=== PATIENT | female | born 1945 | race Caucasian/White ===

== ENCOUNTER 2020-04-02 01:49 | Outpatient (CLI) | payer MEDICARE, OTHER, SELFPAY ==
[2020-04-02 18:01] LABS: SARS-CoV-2 RNA PCR Negative
== END 2020-04-02 01:50 | disposition home or self-care (01) ==
LOC: ANHCOVIDDT 01:50
PROVIDERS: PCP Internal Medicine; Visit Provider Internal Medicine Gastroenterology
DX: Z01.812 Encounter for preprocedural laboratory examination (principal); Z20.828 Contact with and (suspected) exposure to other viral communicable diseases
CPT/HCPCS: 87635; C9803; U0003

== ENCOUNTER 2020-04-05 04:02 | Day surgery (SDC) | payer MEDICARE, OTHER, SELFPAY ==
[2020-03-29 11:42] VITALS: BMI 27.7
[2020-04-05 09:30] VITALS: BP 156/82; PULSE 97; RESP 20; TEMP 36.8; O2SAT 100
--- NOTE | 2020-04-05 09:38 | P.PNAN_ITS ---
Anes - Initial Pre Proc Eval Procedure: Operation Date: 04/05/20 10:45 Proposed Procedures p Screening Colonoscopy - Sea Suarez MD Date/Time: 04/05/20 09:38 Surgeon: Sea Suarez MD Pre Op Diagnosis: Neoplasm Screening Patient Data Age: 74 Gender: F Height: 5 ft 6 in Weight: 78.9 kg Last Vital Signs Temp 98.2 F 04/05/20 09:30 Pulse 97 04/05/20 09:30 Resp 20 04/05/20 09:30 BP 156/82 H 04/05/20 09:30 Pulse Ox 100 04/05/20 09:30 Allergies Allergy/AdvReac Type Severity Reaction Status Date / Time nitrofurantoin Allergy Severe Rash Verified 04/05/20 09:26 [From Macrobid] bacitracin Allergy Mild skin Verified 04/05/20 09:26 eruption clarithromycin Allergy Mild GI upset Verified 04/05/20 09:26 erythromycin base Allergy Mild GI upset Verified 04/05/20 09:26 gramicidin D Allergy Mild skin Verified 04/05/20 09:26 reaction neomycin Allergy Mild Rash Verified 04/05/20 09:26 polymyxin B Allergy Mild Rash Verified 04/05/20 09:26 Home Medications Medication Instructions Recorded Confirmed Type diltiazem HCl 180 mg 180 mg PO DAILY #90 cap 06/29/19 04/05/20 Rx capsule,extended release 24 hr aspirin [Aspir-81] 81 mg PO DAILY 07/29/19 04/05/20 History emollient combination no.40 1 each TOPICAL PRN PRN 08/24/19 04/05/20 History losartan 100 mg tablet 100 mg PO DAILY #90 tablet 12/07/19 04/05/20 Rx levothyroxine 88 mcg tablet 88 mcg PO DAILY #90 tablet 02/08/20 04/05/20 Rx pantoprazole 40 mg tablet,delayed 40 mg PO DAILY #90 tablet 02/08/20 04/05/20 Rx release simvastatin 10 mg tablet 10 mg PO DAILY #90 tablet 02/08/20 04/05/20 Rx folic acid 1 mg tablet 4 mg PO DAILY tablet 03/07/20 04/05/20 History methotrexate sodium 15 mg PO WEEKLY 03/29/20 04/05/20 History triamcinolone acetonide 1 applic TOPICAL BID PRN 03/29/20 04/05/20 History Patient hx anesthesia problems: none Family hx anesthesia problems: none [facility] Social History Social History Smoking status: Former smoker Second hand tobacco smoke exposure: No Smoking end date: 08/19/81 Alcohol intake: current Substance use: never Anes - Eval Final PreProcedure Day of Procedure 04/05/20 09:38 Patient weight: normal Heart: regular rate and rhythm Lungs: clear to auscultation Airway: Mallampati scale class II Neurological: alert and oriented Last oral intake: >/= 8 hours ASA classification: III Emergent: no Anesthetic plan: proceed Anesthesia type and monitoring: general GIVS and standard monitoring Informed Consent: The patient's anesthetic plan and its attendant risks and benefits were discussed with the patient/family/POA. Questions were solicited and answers provided to the satisfaction of the patient/family/POA.
[2020-04-05] MEDS: LACTATED RINGERS 1,000 ML 150 ML IV CONT (09:42)
--- NOTE | 2020-04-05 11:12 | PM.HPGS ---
History of Present Illness History of Present Illness Consent: Risks, benefits, and alternatives have been discussed and questions answered. Patient agrees to proceed with procedure. Chief complaint: Neoplasm Screening Narrative: Pennie Lozano is a 74 year old female here with positive cologuard, had colonoscopy about 10 years ago. Review of Systems Constitutional: Constitutional: Denies headache(s) and Denies weakness Eyes: Eyes: Denies blurry vision ENT: Reports Normal hearing present, Denies headache(s) and Denies neck pain Cardiovascular: Cardiovascular: Denies chest pain and Denies dyspnea Respiratory: Respiratory: Denies dyspnea Gastrointestinal: Gastrointestinal: Reports no additional gastrointestinal complaints Genitourinary: Genitourinary: Denies dysuria Musculoskeletal: Musculoskeletal: Denies neck pain Integumentary/Breasts: Skin/Breast: Denies dry skin Neurologic: Reports Normal hearing present, Denies headache(s) and Denies weakness Psychiatric: Psychiatric: Denies anxiety Endocrine: Endocrine: Denies change in body appearance Hematologic/Lymphatic: Hematologic/Lymphatic: Denies easy bleeding Allergic/Immunologic: Allergic/Immunologic: Denies urticaria PMFSH Past Medical History Medical History (Updated 04/05/20 @ 11:13 by Sea Suarez MD) Asthma Hyperlipidemia Positive colorectal cancer screening using Cologuard test Unspecified asthma, uncomplicated Social History Social History Smoking status: Former smoker Second hand tobacco smoke exposure: No Smoking end date: 08/19/81 Alcohol intake: current Substance use: never Meds Home Medications and Allergies Home Medications Medication Instructions Recorded Confirmed Type diltiazem HCl 180 mg 180 mg PO DAILY #90 cap 06/29/19 04/05/20 Rx capsule,extended release 24 hr aspirin [Aspir-81] 81 mg PO DAILY 07/29/19 04/05/20 History emollient combination no.40 1 each TOPICAL PRN PRN 08/24/19 04/05/20 History losartan 100 mg tablet 100 mg PO DAILY #90 tablet 12/07/19 04/05/20 Rx levothyroxine 88 mcg tablet 88 mcg PO DAILY #90 tablet 02/08/20 04/05/20 Rx pantoprazole 40 mg tablet,delayed 40 mg PO DAILY #90 tablet 02/08/20 04/05/20 Rx release simvastatin 10 mg tablet 10 mg PO DAILY #90 tablet 02/08/20 04/05/20 Rx folic acid 1 mg tablet 4 mg PO DAILY tablet 03/07/20 04/05/20 History methotrexate sodium 15 mg PO WEEKLY 03/29/20 04/05/20 History triamcinolone acetonide 1 applic TOPICAL BID PRN 03/29/20 04/05/20 History Allergies Allergy/AdvReac Type Severity Reaction Status Date / Time nitrofurantoin Allergy Severe Rash Verified 04/05/20 09:26 [From Macrobid] bacitracin Allergy Mild skin Verified 04/05/20 09:26 eruption clarithromycin Allergy Mild GI upset Verified 04/05/20 09:26 erythromycin base Allergy Mild GI upset Verified 04/05/20 09:26 gramicidin D Allergy Mild skin Verified 04/05/20 09:26 reaction neomycin Allergy Mild Rash Verified 04/05/20 09:26 polymyxin B Allergy Mild Rash Verified 04/05/20 09:26 Vital Signs Vital Signs - 24 hr 04/05/20 09:30 Temperature 98.2 F Pulse Rate 97 Respiratory Rate 20 Blood Pressure 156/82 H Pulse Oximetry 100 Exam Const: General: comfortable and no acute distress HENMT: General nose exam: Normal nares present Eyes: General: appearance normal, both eyes and all related structures Neck: Neck: no JVD Resp: Auscultation: clear to auscultation bilaterally Cardio: Rate: regular rate Rhythm: regular rhythm GI: Inspection: non-distended GI Palp: Yes Soft to palpation Skin: General skin exam: normal color Neuro: General: gait normal Speech: normal speech Extrem: General: normal to inspection Psych: Mental Status: mental status grossly normal Assessment and Plan Assessment and plan (1) Positive colorectal cancer screening using Cologuard test: Code(s):
[2020-04-05 11:40] VITALS: BP 144/76; PULSE 97; RESP 27; O2SAT 98
[2020-04-05 11:50] VITALS: BP 145/77; PULSE 85; RESP 25; O2SAT 100
[2020-04-05 12:00] VITALS: BP 148/76; PULSE 74; RESP 24; O2SAT 97
== END 2020-04-05 12:11 | disposition home or self-care (01) ==
PROVIDERS: PCP Internal Medicine; Visit Provider Internal Medicine Gastroenterology
PROC: 0DJD8ZZ Inspection of Lower Intestinal Tract, Via Natural or Artificial Opening Endoscopic (ICD-10-PCS; CPT 45378; principal; 2020-04-05 10:45)
DX: R19.5 Other fecal abnormalities (principal); D12.2 Benign neoplasm of ascending colon; D12.0 Benign neoplasm of cecum; E78.5 Hyperlipidemia, unspecified
CPT/HCPCS: 45385; 88305; J2704; J7120

== ENCOUNTER 2020-08-04 09:25 | Emergency (ER) | payer MEDICARE, OTHER, SELFPAY ==
--- NOTE | ~2020-08-04 | XR_ITS ---
EXAMINATION: XR wrist LT min 3V DATE: 08/04/2020 09:40 INDICATION: Left wrist pain. Fall. TECHNIQUE: 4 views of left wrist were obtained. COMPARISON: Left wrist radiographs 08/03/2015 FINDINGS: There is a comminuted fracture of distal radius with involvement of the distal articular ochoa rface and distal radioulnar joint. The main distal fracture fragment demonstrates impaction and dorsa l angulation. There is 27 degrees dorsal tilt of the distal articular surface. Ulnar styloid is intac t. There is mild osteoarthritis of first carpometacarpal joint. IMPRESSION: 1. Comminuted fracture of distal radius. Reviewed, dictated and finalized at location A. 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
[2020-08-04 09:28] VITALS: BP 176/82; PULSE 78; RESP 16; TEMP 36.6; O2SAT 98
--- NOTE | 2020-08-04 10:26 | ED.GENADULT ---
HPI - General Adult General Chief complaint: Extremity Injury, Upper Stated complaint: left wrist pain, fall Time Seen by Provider: 08/04/20 09:29 Source: patient Mode of arrival: ambulatory Limitations: no limitations History of Present Illness HPI narrative: Patient presents with chief complaint of left wrist pain that she sustained this morning after tripping on a frozen mouth falling with her left hand outstretched. Patient reports her pain worsens when she tries to flex or extend her wrist or move her fingers. Patient reports still having full sensation and range of motion to her fingers. Patient denies falling and hitting her head or having any consciousness or any other areas of pain or injury. Patient reports she has seen Dr. Harrison in the past for orthopedic issues with her knees and would like to see him again as needed. Related Data Home Medications Medication Instructions Recorded Confirmed aspirin [Aspir-81] 81 mg PO HS 07/29/19 08/04/20 emollient combination no.40 1 each TOPICAL PRN PRN 08/24/19 08/04/20 folic acid 1 mg tablet 5 mg PO DAILY tablet 03/07/20 08/04/20 methotrexate sodium 15 mg PO WEEKLY 03/29/20 08/04/20 triamcinolone acetonide 1 applic TOPICAL BID PRN 03/29/20 08/04/20 diltiazem HCl 240 mg PO HS 08/04/20 08/04/20 levothyroxine 88 mcg PO QAM 08/04/20 08/04/20 losartan 100 mg PO QAM 08/04/20 08/04/20 pantoprazole 40 mg PO QAM 08/04/20 08/04/20 simvastatin 10 mg PO HS 08/04/20 08/04/20 Allergies Allergy/AdvReac Type Severity Reaction Status Date / Time nitrofurantoin Allergy Severe Rash Verified 08/04/20 09:35 [From Macrobid] bacitracin Allergy Mild Blister Verified 08/04/20 14:33 gramicidin D Allergy Mild skin Verified 08/04/20 09:35 reaction neomycin Allergy Mild Blister Verified 08/04/20 14:33 polymyxin B Allergy Mild Blister Verified 08/04/20 14:33 erythromycin base AdvReac Mild GI upset Verified 08/04/20 14:33 Review of Systems Review of Systems: Narrative: CONSTITUTIONAL: Denies fever, chills, or sweats. EYES: Denies visual changes, redness, or discharge. ENT: Denies rhinorrhea, congestion, sore throat, or otalgia. CARDIOVASCULAR: Denies chest pain, palpitations, or edema. RESPIRATORY: Denies cough or dyspnea. GASTROINTESTINAL: Denies abdominal pain, nausea, vomiting, or diarrhea. GENITOURINARY: Denies dysuria or hematuria. SKIN: Denies rash or itching. MUSCULOSKELETAL: Reports left wrist pain denies back pain or myalgia. NEUROLOGIC: Denies headache, numbness, dizziness, or weakness. PSYCHIATRIC: Denies anxiety or depression. REPLACED BY [facility] Past Medical History Medical History (Updated 08/04/20 @ 10:34 by Omid Carvajal PA-C) Asthma Hyperlipidemia Positive colorectal cancer screening using Cologuard test Unspecified asthma, uncomplicated Family History Family History Sibling Family history of elevated blood lipids Mother Patient's mother is Father Patient's father is Social History Social History Smoking status: Former smoker Second hand tobacco smoke exposure: No Smoking end date: 08/19/81 Alcohol intake: current Substance use: never Exam Narrative: Exam Narrative: GENERAL: Well-appearing, well-nourished, and in no acute distress. HEAD: Normocephalic, atraumatic. No tenderness or hematomas or signs of injury noted. EYES: PERRLA and EOMI. NECK: Supple. No adenopathy or masses. No tenderness or lacerated motion. CHEST: Clear to auscultation. No respiratory distress. No wheezes rales or rhonchi EXTREMITIES: Swelling of the radial area. Minimal erythema or ecchymosis. Loss of flexion and extension of the left wrist due to pain. Sensation and range of motion intact to digits. Pulse intact. SKIN: Warm, dry, no rash. NEURO: No focal deficits. Alert and oriented x3. PSYCH: Normal mood and affect. Course
[2020-08-04] MEDS: IBUPROFEN 600 MG TABLET PO (10:28)
--- NOTE | 2020-08-04 10:38 | PC.NURSE ---
Wrist and sling applied to left upper extremity. Pt tolerated well. Awaiting disposition. Call light within reach.
[2020-08-04 12:07] VITALS: BP 178/89; PULSE 78; RESP 18; O2SAT 100
== END 2020-08-04 12:09 | disposition home or self-care (01) ==
PROVIDERS: Emergency Provider Emergency Medicine; PCP Internal Medicine
DX: S52.592A Other fractures of lower end of left radius, initial encounter for closed fracture (principal); Z79.82 Long term (current) use of aspirin; E78.5 Hyperlipidemia, unspecified; J45.909 Unspecified asthma, uncomplicated; Z87.891 Personal history of nicotine dependence; W00.0XXA Fall on same level due to ice and snow, initial encounter
CPT/HCPCS: 29125; 73110; 99284; A4565; A9270

== ENCOUNTER 2020-08-05 14:05 | Outpatient (CLI) | payer MEDICARE, OTHER, SELFPAY ==
--- NOTE | 2020-08-05 14:09 | ECG_ITS ---
Measurements Intervals [place] Rate: 69 P: 2 FL: 157 QRS: 11 QRSD: 132 T: -1 QT: 387 QTc: 416 Interpretive Statements SINUS RHYTHM RIGHT BUNDLE BRANCH BLOCK BASELINE ARTIFACT- II, III, AVR, AVF ABNORMAL ECG Electronically Signed On 08-05-2020 14:23:45 PARTNERSHIP MANAGER by Eros Acosta D.O.
== END 2020-08-05 14:06 | disposition home or self-care (01) ==
PROVIDERS: PCP Internal Medicine; Visit Provider Orthopaedic Surgery
DX: Z01.818 Encounter for other preprocedural examination (principal); I10 Essential (primary) hypertension; I45.10 Unspecified right bundle-branch block
CPT/HCPCS: 93005

== ENCOUNTER 2020-08-06 00:27 | Outpatient (CLI) | payer MEDICARE, OTHER, SELFPAY ==
[2020-08-06 18:59] LABS: SARS-CoV-2 RNA PCR Negative
== END 2020-08-06 00:28 | disposition home or self-care (01) ==
LOC: ANHCOVIDDT 00:28
PROVIDERS: PCP Internal Medicine; Visit Provider Orthopaedic Surgery
DX: Z01.812 Encounter for preprocedural laboratory examination (principal); Z20.828 Contact with and (suspected) exposure to other viral communicable diseases
CPT/HCPCS: 87635; C9803; U0003

== ENCOUNTER 2020-08-09 02:02 | Day surgery (SDC) | payer MEDICARE, OTHER, SELFPAY ==
[2020-08-04 14:42] VITALS: BMI 27.3
--- NOTE | 2020-08-08 12:28 | WPDANESEPPF ---
Anes - Initial Pre Proc Eval Procedure: Operation Date: 08/09/20 14:00 Proposed Procedures p Open Reduction Internal Fixation Left Wrist - Rolando Harrison MD Date/Time: 08/08/20 12:28 Surgeon: Rolando Harrison MD Pre Op Diagnosis: Left Distal Radius Fracture Patient Data Age: 74 Gender: F Height: 1.68 m Weight: 77 kg Allergies Allergy/AdvReac Type Severity Reaction Status Date / Time nitrofurantoin Allergy Severe Rash Verified 08/08/20 13:07 [From Macrobid] bacitracin Allergy Mild Blister Verified 08/08/20 13:07 gramicidin D Allergy Mild skin Verified 08/08/20 13:07 reaction neomycin Allergy Mild Blister Verified 08/08/20 13:07 polymyxin B Allergy Mild Blister Verified 08/08/20 13:07 erythromycin base AdvReac Mild GI upset Verified 08/08/20 13:07 Home Medications Medication Instructions Recorded Confirmed Type aspirin [Aspir-81] 81 mg PO HS 07/29/19 08/08/20 History emollient combination no.40 1 each TOPICAL PRN PRN 08/24/19 08/08/20 History folic acid 1 mg tablet 5 mg PO DAILY tablet 03/07/20 08/08/20 History methotrexate sodium 15 mg PO WEEKLY 03/29/20 08/08/20 History triamcinolone acetonide 1 applic TOPICAL BID PRN 03/29/20 08/08/20 History diltiazem HCl 240 mg PO HS 08/04/20 08/08/20 History hydrocodone-acetaminophen [[place]] 1 tablet PO Q8H PRN #10 tablet 08/04/20 08/08/20 Rx levothyroxine 88 mcg PO QAM 08/04/20 08/08/20 History losartan 100 mg PO QAM 08/04/20 08/08/20 History pantoprazole 40 mg PO QAM 08/04/20 08/08/20 History simvastatin 10 mg PO HS 08/04/20 08/08/20 History ECG: Date of Service: 08/05/20 Procedure(s): CA 12 lead EKG Accession Number(s): [id number] cc: ~ Measurements Intervals [place] Rate: 69 P: 2 CO: 157 QRS: 11 QRSD: 132 T: -1 QT: 387 QTc: 416 Interpretive Statements SINUS RHYTHM RIGHT BUNDLE BRANCH BLOCK BASELINE ARTIFACT- II, III, AVR, AVF ABNORMAL ECG Electronically Signed On 08-05-2020 14:23:45 [employer]STRUMENT MECH[employer]IC [employer] SYSTEM by Eros Acosta D.O. Dictated By: Eros Acosta DO 08/05/20 1444 Other Studies: echo 02/2020: lvsf ef 74%, no wall motion abnormalities. mild aortic stenosis valve area 1.7cm2 Patient hx anesthesia problems: none Family hx anesthesia problems: none PMFSH Past Medical History Medical History (Updated 08/08/20 @ 13:37 by Rolando Harrison MD) Asthma Chronic GERD Claustrophobia Coughing GERD (gastroesophageal reflux disease) Heart attack History of postoperative complication of surgical procedure HTN (hypertension) Hyperlipidemia Hypothyroidism Positive colorectal cancer screening using Cologuard test Unspecified asthma, uncomplicated Surgical History Surgical History (Updated 08/08/20 @ 13:32 by Rama Carpenter, RT(R)) History of meniscectomy of left knee History of tonsillectomy and adenoidectomy Family History Family History (Updated 08/08/20 @ 13:33 by Rama Carpenter RT(R)) Sibling Family history of elevated blood lipids Mother Patient's mother is Father Patient's father is Other Arthritis Carcinoma of colon Heart disease High cholesterol Social History Social History (Updated 08/08/20 @ 13:34 by Rama Carpenter RT(R)) Smoking packs per day: 1 Smoking cigarettes per day: 20.0 Years smoked: 4 Smoking pack-years: 4.00 Smoking status: Former smoker Second hand tobacco smoke exposure: No Smoking end date: 02/17/80 Alcohol intake: former Alcohol use details: SOCIAL DRINKER IN PAST Substance use: never Substance use type: does not use Living arrangements: with family Gender identity (if verbalized by the patient): Female Spiritual care concer
[2020-08-09] VITALS (14 sets, daily range): BP systolic 124–178; BP diastolic 52–78; PULSE 68–94; RESP 10–20; TEMP 36.1–36.4; O2SAT 93–100
--- NOTE | ~2020-08-09 | XR_ITS ---
XR surgery orthopedic 08/09/2020 15:51 Indication: Left wrist pain Procedure: 4 fluoroscopic images of the left wrist performed intraoperatively. 323 seconds of fluoros copy. Comparison: 08/08/2020 Findings: Comminuted fracture the distal radius transfixed by side plate and multiple screws. Fractur e fragments in anatomic alignment post reduction. No other gross fracture or malalignment. Impression: 1: Anatomic alignment of comminuted distal radial fracture post reduction with sideplate and screws. Reviewed, dictated and finalized at location A. STANT PROFESSOR OF LIFE SCIENCES Impression: 1: Anatomic alignment of comminuted distal radial fracture post reduction with sideplate and screws.
--- NOTE | 2020-08-09 12:54 | WPDANESPNB ---
Anes - Peripheral Nerve Block Date/Time: 08/09/20 12:54 I have discussed with the patient/family/POA the placement of a peripheral nerve block for post-operative pain management, including associated risks, benefits, complications, and side effects. Alternative methods of post-operative analgesia were detailed. Questions were solicited and answers provided to the satisfaction of the patient/family/POA. Time-Out: A pre-procedural Time-Out was completed immediately before starting the procedure and confirmed: Patient Identification, Site, Procedure, Patient Position and the Availability of Requisite Equipment. Clinical Indications: Acute post-operative pain management requested by the operative surgeon. Nerve Block Insertion Note Anes-nerve block: supraclavicular Patient position: supine Skin prep: chlorhexidine Needle: 22 gauge, stimulating, insulated echogenic needle. Needle length: 80 mm Technique: ultrasound (in plane) Injectate: bupivacaine 0.5% with epi 5 mcg/ml (20cc) Observations: tolerated well Complications: none Procedure start time:: 1350 Procedure end time:: 1355
[2020-08-09] MEDS: CELECOXIB 200 MG CAPSULE PO (13:11)
[2020-08-09] MEDS: ACETAMINOPHEN 500 MG TABLET 1000 MG PO (13:11)
[2020-08-09] MEDS: LACTATED RINGERS 1,000 ML 30 ML IV CONT ×3 (13:12→18:00)
--- NOTE | 2020-08-09 13:39 | WPDHPUPDATE1 ---
History and Physical Update Update Date/Time: 08/09/20 13:39 History and Physical has been reviewed, including an updated exam of the patient. There are NO changes in the patient's condition. Risks, benefits, and alternatives have been discussed and questions answered. Patient agrees to proceed with procedure.
[2020-08-09] MEDS: ceFAZolin 2 GM/D5W 50 ML 2 GM/50 ML BAG IVPB (14:02)
--- NOTE | 2020-08-09 16:19 | PM.PROC ---
Procedure Note - Detailed Date of procedure: 08/09/20 Pre-op diagnosis: Left Distal Radius Fracture Post-op diagnosis: same Procedure performed: ORIF LEFT DISTAL RADIUS FRACTURE Description of procedure: THE PATIENT WAS TAKEN TO THE OR AND PLACED UNDER GENERAL ANESTHESIA. THE LEFT UPPER EXTREMITY WAS PREPPED AND DRAPED FROM THE FINGERS TO THE ELBOW. AN INCISION WAS MADE OVER THE VOLAR WRIST IN A STANDARD HENRYS APPROACH OVER THE SKIN. DISSECTION CONTINUED UNTIL THE RADIAL ARTERY AND VEIN WERE IDENTIFIED AND RETRACTED. THE FCR TENDON WAS EXPOSED AND RETRACTED. THE FLEXOR POLLICIS TENDON WAS IDENTIFIED AND RETRACTED. THE PRONATOR QUADRATUS MUSCLE WAS IDENTIFIED AND WAS INCISED AT THE INSERTION SITE. THE FRACTURE WAS EXPOSED. A BIOMET DISTAL RADIUS PLATE WAS POSITIONED BRIDGING THE FRACTURE SITE. THE POSITION WAS CHECKED ON XRAY. DISTAL AND PROXIMAL SCREWS WERE PLACED WITH EXCELLENT FIXATION TO THE BONE. XRAYS WERE CHECKED AGAIN ASSURING EXCELLENT POSITION OF THE PLATE AND SCREWS AND A WELL REDUCED FRACTURE. THE TOURNEQUET WAS DEFLATED AND THE BLEEDERS WERE CAUTERIZED. THE RADIAL ARTERY WAS PULSATING WELL. THE WOUND WAS WASHED. THE DEEP LAYERS WERE REPAIRED WITH 3-0 VICRYL. THE SUBCUTANEOUS LAYER WAS APPROXIMATED WELL WITH 3-0 VICRYL AND THE SKIN WAS APPROXIMATED WITH 3-0 STRATAFIX AND DERMABOND AND STERI STRIPS. STERILE DRESSING WAS APPLIED AND A SUGAR TONG FOREARM SPLINT WAS APPLIED. THE PATIENT WAS EXTUBATED AND TRANSFERRED TO THE RECOVERY ROOM Anesthesia: GLMA Surgeon: Rolando Harrison MD Estimated blood loss (mL): 20 Complications: No immediate complications Condition: stable Disposition: PACU
[2020-08-09] MEDS: ONDANSETRON INJ 4 MG/2 ML VIAL IV PUSH (16:41)
[2020-08-09] MEDS: LABETALOL HCL INJ 100 MG/20 ML VIAL 10 MG IV PUSH (16:53)
--- NOTE | 2020-08-09 16:56 | SUR.PHASEI ---
PT C/O'D EPIGASTIC PAIN AND NAUSEA, SOB; MONITOR SHOWS BUNDLE BRANCH BLOCK; DR. GONZALEZ CALLED; ZOFRAN AND LABETOLOL GIVEN. TO GIVE FENTANYL NOW. HOB UP 40 DEGREES.
[2020-08-09] MEDS: fentaNYL CITRATE INJ (*CRX) 100 MCG/2 ML VIAL 25 MCG IV PUSH ×2 (17:01→17:22)
[2020-08-09] MEDS: diphenhydrAMINE HCl INJ 50 MG/ML VIAL 12.5 MG IV PUSH (17:04)
[2020-08-09] MEDS: hydrALAZINE HCL 20 MG/ML VIAL 10 MG IV PUSH (17:14)
--- NOTE | 2020-08-09 17:53 | SUR.PHASEI ---
DR. GONZALEZ CAME BY A SECOND TIME TO SEE PT. DR. JUSTIN CAME TO SEE PT. PT NOW DENIES SOB AND THAT EPIGASTRIC PAIN IS RESOLVING.
--- NOTE | 2020-08-09 18:08 | SUR.PHASEI ---
PT STATES THAT SHE FEELS SHE CAN'T MOVE, FEELS HEAVY . PT IS ABLE TO MOVE ALL EXTREMITIES; GOOD STRENGTH TO LEGS/FEET. STRONG RIGHT HAND TACKING STITCH REMOVER. TALKING TO ME OFTEN. BELCHING FREQUENTLY.
--- NOTE | 2020-08-09 19:38 | SUR.PHASEII ---
Addendum entered by Asha Witt RN 08/10/20 12:02: ON THE RECLINER Original Note: DR. JUSTIN CALLED PER HIS REQUEST TO TELL HIM THAT VLADIMIR IS MUCH BETTER AND MEETS ANESTHESIA CRITERIA FOR DISCHARGE. PT DENIES NAUSEA, CHEST PAIN, SOB, LEFT WRIST PAIN. ABLE TO TRANSFER FROM STRETCHER TO BATHROOM WITH SOME ASSISTANCE. RESTING NOW NO THE RECLINER.
== END 2020-08-09 19:45 | disposition home or self-care (01) ==
PROVIDERS: PCP Internal Medicine; Visit Provider Orthopaedic Surgery
PROC: (CPT 25575; principal; 2020-08-09 14:00)
DX: S52.502A Unspecified fracture of the lower end of left radius, initial encounter for closed fracture (principal); W19.XXXA Unspecified fall, initial encounter; G89.18 Other acute postprocedural pain; I10 Essential (primary) hypertension; K21.9 Gastro-esophageal reflux disease without esophagitis; E03.9 Hypothyroidism, unspecified; J45.909 Unspecified asthma, uncomplicated; I25.2 Old myocardial infarction; Z87.891 Personal history of nicotine dependence
CPT/HCPCS: 25608; 64415; A9270; C1713; J0360; J0690; J1100; J1200; J2250; J2405; J2704; J3010; J7120

== ENCOUNTER 2020-08-27 09:16 | Outpatient (CLI) | payer MEDICARE, OTHER, SELFPAY ==
--- NOTE | ~2020-08-27 | MM_ITS ---
EXAMINATION: MM screening [facility] BI w sharon HISTORY: Screening TECHNIQUE: Craniocaudal and mediolateral oblique 3-D tomosynthesis images were obtained and synthetic 2-D images were generated. CAD analysis was submitted and interpreted. COMPARISON: Comparison to multiple prior studies sequentially, with oldest reviewed study dated 05/19. BREAST PARENCHYMAL COMPOSITION: There are scattered areas of fibroglandular density. FINDINGS: There is no evidence of suspicious mass, calcification, or architectural distortion to sugg est malignancy in either breast. There has been no suspicious interval change. IMPRESSION: 1. No mammographic evidence of malignancy. 2. Recommend routine screening mammography in one year. BI-RADS Category 1: Negative Reviewed, dictated and finalized at location A. IFIED HEARING INSTRUMENT DISPENSER
== END 2020-08-27 09:17 | disposition home or self-care (01) ==
LOC: ANHIMG 09:21
PROVIDERS: PCP Internal Medicine; Visit Provider Internal Medicine
DX: Z12.31 Encounter for screening mammogram for malignant neoplasm of breast (principal)
CPT/HCPCS: 77063; 77067

== ENCOUNTER 2021-09-27 10:01 | Outpatient (CLI) | payer MEDICARE, OTHER, SELFPAY ==
--- NOTE | ~2021-09-27 | MM_ITS ---
EXAMINATION: MM screening [facility] BI w sharon HISTORY: Screening mammogram TECHNIQUE: Craniocaudal and mediolateral oblique 3-D tomosynthesis images were obtained and synthetic 2-D images were generated. CAD analysis was submitted and interpreted. COMPARISON: 08/27/2020, 08/25/2019, 07/18/2018 BREAST PARENCHYMAL COMPOSITION: There are scattered areas of fibroglandular density. FINDINGS: There is no evidence of suspicious mass, calcification, or architectural distortion to sugg est malignancy in either breast. There has been no suspicious interval change. IMPRESSION: 1. No mammographic evidence of malignancy. 2. Recommend routine screening mammography in one year. BI-RADS Category 1: Negative Reviewed, dictated and finalized at location A. ALARM OPERATOR
== END 2021-09-27 10:02 | disposition home or self-care (01) ==
LOC: ANHIMG 10:05
PROVIDERS: PCP Internal Medicine; Visit Provider Student in an Organized Health Care Education/Training Program
DX: Z12.31 Encounter for screening mammogram for malignant neoplasm of breast (principal)
CPT/HCPCS: 77063; 77067

== ENCOUNTER 2021-11-15 08:29 | Outpatient (CLI) | payer MEDICARE, OTHER, SELFPAY ==
--- NOTE | ~2021-11-15 | NM_ITS ---
EXAMINATION: NM eusebia stress w perfusion DATE: 11/15/2021 15:20 INDICATION: Other chest pain. TECHNIQUE: Rest images were obtained following intravenous administration of 10.7 mCi Tc99m tetrofosm in (Myoview). The patient was infused intravenously with Lexiscan (regadenoson). Then, 32.3 mCi Tc99m tetrofosmin (Myoview) was administered intravenously, and stress images were obtained. Data was lavern nstructed into short axis and horizontal and vertical long axis SPECT images. Gated SPECT images were also obtained. COMPARISON: None. FINDINGS: There is no definite reversible or fixed perfusion abnormality to suggest ischemia or infar ction. There is no segmental wall motion abnormality. Left ventricular ejection fraction measures > 70%. IMPRESSION: 1. No definite ischemia or infarct. 2. Normal left ventricular ejection fraction measuring >70%. Reviewed, dictated and finalized at location A.
--- NOTE | 2021-11-15 08:40 | ECHO_ITS ---
Patient Info Name: Pennie Lozano Age: 75 years : 1945 Gender: Female Ht: 67 in Wt: 168 lbs BSA: 1.91 m2 HR: 84 bpm BP: 166 / 86 mmHg Heart Rhythm: Sinus Rhythm Exam Date: 11/15/2021 9:11 AM Exam Location: [facility] Pulmonary Patient Status: Outpatient Admit Date: 11/15/2021 Staff Ordering Physician: De May DO Laminator Hand: Pablito Dumont RDCS, RT Attending Provider: De May DO Referring Physician: Lalo RUTH; Exam Type: CA echo doppler color flow Study Info Indications I10 - Essential (primary) hypertension Complete two-dimensional, color flow and Doppler transthoracic echocardiogram is performed. Strain analysis performed. Summary 1. Left ventricular chamber dimension is normal. 2. Left ventricular systolic function is normal, estimated at >70%. 3. There is moderately increased left ventricular wall thickness. 4. The left ventricular diastolic function is grade I diastolic dysfunction. 5. Global longitudinal strain is normal at -19 %. 6. There is trace mitral valve regurgitation. 7. There is moderate aortic valve stenosis with a peak velocity of 262 cm/s, mean gradient of 13 mmHg, and aortic valve area of 1.4 cm2. Left Ventricle Left ventricular chamber dimension is normal. Left ventricular systolic function is normal, estimated at >70%. There is moderately increased left ventricular wall thickness. The left ventricular diastolic function is grade I diastolic dysfunction. Global longitudinal strain is normal at -19 %. Right Ventricle Right ventricular chamber dimension is normal. Right ventricular systolic function is normal. Left Atria Left atrial chamber dimension is normal. Right Atria Right atrial chamber dimension is normal. Aortic Valve The aortic valve is probable trileaflet. There is moderate aortic valve stenosis with a peak velocity of 262 cm/s, mean gradient of 13 mmHg, and aortic valve area of 1.4 cm2. There is no aortic valve regurgitation. There is mild aortic valve calcification. Pulmonic Valve The pulmonic valve is not well visualized. There is trace pulmonic regurgitation. Mitral Valve The mitral valve has normal leaflets. There is trace mitral valve regurgitation. The mitral valve annulus is mildly calcified. Tricuspid Valve The tricuspid valve leaflets are normal. There is trace tricuspid valve regurgitation. Unable to estimate PA systolic pressure due to poor spectral resolution of tricuspid regurgitant jet velocity. Pericardium/Pleural The pericardium appears epicardial fat pad. There is trivial pericardial effusion. Inferior Vena Cava Normal inferior vena cava with >50% collapse upon inspiration consistent with normal right atrial pressure, 5 mmHg. Aorta The aortic root size at the sinus of Valsalva is normal. There is mild aortic atherosclerosis. Left Ventricular Outflow Tract Name Value Normal LVOT 2D LVOT Diameter 2.0 cm LVOT Doppler LVOT Peak Gradient 5 mmHg LVOT Mean Gradient 2 mmHg LVOT VTI 25 cm L
--- NOTE | 2021-11-15 08:48 | EST_ITS ---
Patient Info Name: Pennie Lozano Age: 75 years : 1945 Gender: Female Ht: 67 in Wt: 168 lbs BSA: 1.91 m2 HR: 85 bpm BP: 182 / 90 mmHg Heart Rhythm: Sinus Rhythm Exam Date: 11/15/2021 11:01 AM Exam Location: [facility] Stress Patient Status: Outpatient Admit Date: 11/15/2021 Staff Ordering Physician: De May DO Attending Provider: De May DO Exercise Technologist: Margi Trammell CT Exercise Physician: Eros Acosta DO Exam Type: CA stress eusebia w NM Study Info Indications R07.9 - Chest pain, unspecified A regadenoson stress test was performed. Summary 1. 1. Negative lexiscan stress test for ischemic ST changes by ECG criteria. 2. 2. Baseline hypertension. 3. 3. Nuclear scan to follow and will be reported separately. Please correlate with it. 4. 4. Patient informed of the above results. Protocol: Lexiscan Stress ECG Details Stage: REST Duration (min): 14 min : 59 sec HR (bpm): 83 SBP (mmHg): 182 DBP (mmHg): 90 Stage: STAGE 1 Duration (min): 1 min : 0 sec HR (bpm): 114 SBP (mmHg): 185 DBP (mmHg): 86 Stage: RECOVERY Duration (min): 1 min : 0 sec HR (bpm): 118 SBP (mmHg): 185 DBP (mmHg): 86 Stage: RECOVERY Duration (min): 2 min : 0 sec HR (bpm): 105 SBP (mmHg): 185 DBP (mmHg): 86 Stage: RECOVERY Duration (min): 3 min : 0 sec HR (bpm): 107 SBP (mmHg): 189 DBP (mmHg): 81 Stage: RECOVERY Duration (min): 3 min : 43 sec HR (bpm): 98 SBP (mmHg): 189 DBP (mmHg): 81 Rest HR: 83 bpm Peak HR: 121 bpm Rest Sys BP: 182 mmHg Peak Sys BP: 189 mmHg Max Pred HR: 144 bpm % Max Pred HR: 84 % Target HR: 122 bpm Max RPP: 22,869 bpm*mmHg Termination Reason: Completed protocol Cardiac Symptoms: Shortness of breath Total Time: 1 min : 0 sec Rest Claudio BP: 90 mmHg Peak Claudio BP: 81 mmHg Total Dose: 0.4 mg Resting ECG Sinus rhythm, RBBB. Stress ECG No ST changes. Arrhythmias None. Report Signatures
== END 2021-11-15 08:30 | disposition home or self-care (01) ==
LOC: ANHCARD 08:33
PROVIDERS: PCP Internal Medicine; Visit Provider Internal Medicine
DX: I10 Essential (primary) hypertension (principal); R07.89 Other chest pain
CPT/HCPCS: 78452; 93017; 93306; A9502; J2785

== ENCOUNTER 2022-03-15 09:21 | Emergency (ER) | payer MEDICARE, OTHER, SELFPAY ==
--- NOTE | ~2022-03-15 | XR_ITS ---
EXAMINATION: XR hand RT min 3V INDICATION: Right hand pain TECHNIQUE: Three views of the right hand are obtained. COMPARISON: 08/03/2015 FINDINGS: There is no fracture, dislocation, or subluxation. There is mild osteoarthritis of multiple interphalangeal joints as well as at the triscaphe joint. The soft tissues are unremarkable. IMPRESSION: 1. Polyarticular osteoarthritis without acute osseous abnormality. Reviewed, dictated and finalized at location B.
--- NOTE | 2022-03-15 09:33 | ED.UPPEXIN ---
HPI - Extremity Injury (Upper) General Chief Complaint: Extremity Injury, Upper Stated Complaint: right hand injury Time Seen by Provider: 03/15/22 09:33 Source: patient, RN notes reviewed and old records reviewed Mode of arrival: ambulatory Limitations: no limitations History of Present Illness HPI narrative: 76 year old female who presents to [facility] care with complaints of right hand injury which occurred when she first fell yesterday. She states that she fell onto her knees and must of hit her hand or applied some increased pressure to her right hand when she fell. Patient has pain along the dorsal right 5th metacarpal and with some bruising noted also some swelling to dorsal aspect of her right hand. Patient has full ROM of right hand and wrist with some discomfort, circulation and sensation are intact to right hand and fingers. MD complaint: injury to: right and hand Onset (ago): day(s) (1) Handedness: right Treatments prior to arrival: cold therapy and other (Tylenol and Aleve) Related Data Home Medications Medication Instructions Recorded Confirmed emollient combination no.40 1 each topical PRN PRN Dry Skin 08/24/19 03/15/22 (Cetaphil DailyAdvance lotion) triamcinolone acetonide 0.1 % 1 applic topical BID PRN Dry Skin 03/29/20 03/15/22 lotion aspirin 81 mg chewable tablet 81 mg PO DAILY 03/15/22 03/15/22 leflunomide 20 mg tablet 20 mg PO DAILY 03/15/22 03/15/22 Allergies Allergy/AdvReac Type Severity Reaction Status Date / Time nitrofurantoin Allergy Severe Rash Verified 03/15/22 09:25 [From Macrobid] bacitracin Allergy Mild Blister Verified 03/15/22 09:25 gramicidin D Allergy Mild skin Verified 03/15/22 09:25 reaction neomycin Allergy Mild Blister Verified 03/15/22 09:25 polymyxin B Allergy Mild Blister Verified 03/15/22 09:25 erythromycin base AdvReac Mild GI upset Verified 03/15/22 09:25 Review of Systems Review of Systems: CONSTITUTIONAL: Denies fever, chills, or sweats. EYES: Denies visual changes, redness, or discharge. ENT: Denies rhinorrhea, congestion, sore throat, or otalgia. CARDIOVASCULAR: Denies chest pain, palpitations, or edema. RESPIRATORY: Denies cough or dyspnea. GASTROINTESTINAL: Denies abdominal pain, nausea, vomiting, or diarrhea. GENITOURINARY: Denies dysuria or hematuria. SKIN: Denies rash or itching. MUSCULOSKELETAL: Denies back pain, positive for right hand pain, or myalgia. NEUROLOGIC: Denies headache, numbness, or weakness. PSYCHIATRIC: Denies anxiety or depression. All systems reviewed & are unremarkable except as noted in HPI and below PMFSH Past Medical History Medical History (Updated 03/15/22 @ 11:05 by Pennie Merino NP) Asthma Chronic GERD Claustrophobia Coughing GERD (gastroesophageal reflux disease) Heart attack History of postoperative complication of surgical procedure HTN (hypertension) Hyperlipidemia Hypothyroidism Left wrist fracture Positive colorectal cancer screening using Cologuard test Unspecified asthma, uncomplicated Surgical History Surgical History History of meniscectomy of left knee History of tonsillectomy and adenoidectomy Family History Family History Sibling Family history of elevated blood lipids Mother Patient's mother is Ovarian cancer Father Patient's father is Other Arthritis Carcinoma of colon Heart disease High cholesterol Social History Social History Smoking packs per day: 1 Smoking cigarettes per day: 20.0 Years smoked: 4 Smoking pack-years: 4.00 Smoking status: Former smoker Second hand tobacco smoke exposure: No Smoking end date: 02/17/80 Alcohol intake: current Alcohol use details: Rarely 1-2 times a year. Substance use: never Substance use type: does not use Gender
[2022-03-15 09:39] VITALS: BP 154/88; PULSE 82; RESP 14; TEMP 36.8; O2SAT 97
== END 2022-03-15 10:10 | disposition home or self-care (01) ==
PROVIDERS: Emergency Provider Registered Nurse; PCP Internal Medicine
DX: S60.221A Contusion of right hand, initial encounter (principal); W19.XXXA Unspecified fall, initial encounter; J45.909 Unspecified asthma, uncomplicated; K21.9 Gastro-esophageal reflux disease without esophagitis; I25.2 Old myocardial infarction; I10 Essential (primary) hypertension; E78.5 Hyperlipidemia, unspecified; E03.9 Hypothyroidism, unspecified; F40.240 Claustrophobia; Z87.891 Personal history of nicotine dependence
CPT/HCPCS: 73130; 99213; G0463

== ENCOUNTER 2022-06-12 09:45 | Outpatient (CLI) | payer MEDICARE, OTHER, SELFPAY ==
--- NOTE | 2022-06-12 09:51 | ECHO_ITS ---
Patient Info Name: Pennie Lozano Age: 76 years : 1945 Gender: Female Ht: 67 in Wt: 165 lbs BSA: 1.89 m2 HR: 74 bpm BP: 151 / 87 mmHg Technical Quality: Good Exam Date: 06/12/2022 11:21 AM Exam Location: [facility] Patient Status: Outpatient Admit Date: 06/12/2022 Staff Ordering Physician: De May DO Digital Librarian: Sunday Enrique RDCS Attending Provider: De May DO Referring Physician: Lalo RUTH; Exam Type: CA echo doppler color flow Study Info Indications I35.0 - Nonrheumatic aortic (valve) stenosis Complete two-dimensional, color flow and Doppler transthoracic echocardiogram is performed. Summary 1. Complete two-dimensional, color flow and Doppler transthoracic echocardiogram is performed. 2. Left ventricular chamber dimension is normal. 3. Left ventricular systolic function is normal, estimated at 65-70%. 4. There is moderate concentric increased left ventricular wall thickness. 5. The left ventricular diastolic function is grade I diastolic dysfunction. 6. There is moderate aortic valve sclerosis. 7. There is moderate aortic valve stenosis with a peak velocity of 264 cm/s, mean gradient of 17 mmHg, and aortic valve area of 1.2 cm2. Left Ventricle Tissue doppler E/e' is not calculated. Left ventricular chamber dimension is normal. Left ventricular systolic function is normal, estimated at 65-70%. There is moderate concentric increased left ventricular wall thickness. The left ventricular diastolic function is grade I diastolic dysfunction. Right Ventricle Right ventricular chamber dimension is normal. Right ventricular systolic function is normal. Left Atria Left atrial chamber dimension is normal. Right Atria Right atrial chamber dimension is normal. Aortic Valve The aortic valve is trileaflet. There is moderate aortic valve sclerosis. There is moderate aortic valve stenosis with a peak velocity of 264 cm/s, mean gradient of 17 mmHg, and aortic valve area of 1.2 cm2. There is no aortic valve regurgitation. Pulmonic Valve There is no pulmonic regurgitation. Mitral Valve There is no mitral valve stenosis. There is no mitral valve regurgitation. Tricuspid Valve There is no tricuspid valve regurgitation. Pericardium/Pleural There is no pericardial effusion. Inferior Vena Cava Normal inferior vena cava with >50% collapse upon inspiration consistent with normal right atrial pressure, 5 mmHg. Aorta The aortic root size at the sinus of Valsalva is normal. Left Ventricular Outflow Tract Name Value Normal LVOT 2D LVOT Diameter 1.9 cm LVOT Doppler LVOT Peak Gradient 6 mmHg LVOT Mean Gradient 4 mmHg LVOT VTI 29 cm LVOT VTI/AV VTI Ratio 0.4 LVOT Stroke Volume 82 ml Tricuspid Valve Name Value Normal Es
== END 2022-06-12 09:46 | disposition home or self-care (01) ==
LOC: ANHCARD 09:46
PROVIDERS: PCP Internal Medicine; Visit Provider Internal Medicine
DX: I35.0 Nonrheumatic aortic (valve) stenosis (principal); I10 Essential (primary) hypertension
CPT/HCPCS: 93306

== ENCOUNTER 2022-11-14 14:40 | Outpatient (CLI) | payer MEDICARE, SELFPAY ==
--- NOTE | ~2022-11-14 | MM_ITS ---
EXAMINATION: MM screening [facility] BI w sharon HISTORY: Screening TECHNIQUE: Craniocaudal and mediolateral oblique 3-D tomosynthesis images were obtained and synthetic 2-D images were generated. CAD analysis was submitted and interpreted. COMPARISON: Comparison to multiple prior studies sequentially, with oldest reviewed study dated 05/20. BREAST PARENCHYMAL COMPOSITION: There are scattered areas of fibroglandular density. FINDINGS: There is no evidence of suspicious mass, calcification, or architectural distortion to sugg est malignancy in either breast. There has been no suspicious interval change. IMPRESSION: 1. No mammographic evidence of malignancy. 2. Recommend routine screening mammography in one year. BI-RADS Category 1: Negative Reviewed, dictated and finalized at location A.
== END 2022-11-14 14:41 | disposition home or self-care (01) ==
LOC: ANHIMG 14:43
PROVIDERS: PCP Internal Medicine; Visit Provider Internal Medicine
DX: Z12.31 Encounter for screening mammogram for malignant neoplasm of breast (principal)
CPT/HCPCS: 77063; 77067

== ENCOUNTER 2022-11-29 08:02 | Outpatient (CLI) | payer MEDICARE, SELFPAY ==
--- NOTE | ~2022-11-29 | CT_ITS ---
Non-contrast CT scan of the Abdomen and Pelvis Clinical indication: Abdominal pain Technique: 2.5 mm axial scans were obtained through the abdomen and pelvis without intravenous or or al contrast. Dose reduction technique was used on this scan by utilizing automated exposure control a nd iterative reconstruction technique. The dose-length product (DLP) was 487.86 mGy-cm. COMPARISON: 10/26/2013 Findings: Images through the lung bases reveal no abnormalities. Small bilateral nonobstructing renal stones are present. No ureteral stone or hydronephrosis on eithe r side. The liver, spleen, pancreas, and right adrenal gland appear normal. Cholecystectomy clips are present . Stable low-density left adrenal nodule, consistent with adenoma. There are atherosclerotic calcific ations of the aorta. There is no evidence of bowel obstruction. Normal appendix. Images through the pelvis were performed. There is no evidence of ascites or lymphadenopathy. Urinary bladder unremarkable. Small fat-containing right inguinal hernia present. Impression: Small bilateral nonobstructing renal stones. Small fat-containing right inguinal hernia. Reviewed, dictated and finalized at location . Impression: Small bilateral nonobstructing renal stones. Small fat-containing right inguinal hernia.
== END 2022-11-29 08:03 | disposition home or self-care (01) ==
PROVIDERS: PCP Internal Medicine; Visit Provider Internal Medicine
DX: R10.9 Unspecified abdominal pain (principal); N20.0 Calculus of kidney; K40.90 Unilateral inguinal hernia, without obstruction or gangrene, not specified as recurrent
CPT/HCPCS: 74176

== ENCOUNTER 2023-03-18 07:00 | Day surgery (SDC) | payer MEDICARE, SELFPAY ==
[2023-02-27 10:40] VITALS: BMI 26.1
[2023-03-18 07:53] VITALS: BP 146/74; PULSE 74; RESP 20; TEMP 37.1; O2SAT 97
--- NOTE | 2023-03-18 07:58 | WPDANESEPPF ---
Anes - Initial Pre Proc Eval Procedure: Operation Date: 03/18/23 09:00 Proposed Procedures p Screening Colonoscopy - Sea Suarez MD Date/Time: 03/18/23 07:58 Surgeon: Sea Suarez MD Pre Op Diagnosis: Neoplasm Screening Patient Data Age: 77 Gender: F Height: 1.68 m Weight: 75.5 kg Last Vital Signs Temp 37.1 C 03/18/23 07:53 Pulse 74 03/18/23 07:53 Resp 20 03/18/23 07:53 BP 146/74 H 03/18/23 07:53 Pulse Ox 97 03/18/23 07:53 O2 Del Method Room Air 03/18/23 07:53 Allergies Allergy/AdvReac Type Severity Reaction Status Date / Time nitrofurantoin Allergy Severe Rash Verified 03/18/23 07:49 [From Macrobid] bacitracin Allergy Mild Blister Verified 03/18/23 07:49 gramicidin D Allergy Mild skin Verified 03/18/23 07:49 reaction neomycin Allergy Mild Blister Verified 03/18/23 07:49 polymyxin B Allergy Mild Blister Verified 03/18/23 07:49 erythromycin base AdvReac Mild GI upset Verified 03/18/23 07:49 Home Medications Medication Instructions Recorded Confirmed Type emollient combination no.40 1 each topical PRN PRN Dry Skin 08/24/19 03/18/23 History (Cetaphil DailyAdvance lotion) triamcinolone acetonide 0.1 % 1 applic topical BID PRN Dry Skin 03/29/20 03/18/23 History lotion aspirin 81 mg chewable tablet 81 mg PO DAILY 03/15/22 03/18/23 History leflunomide 20 mg tablet 20 mg PO DAILY 03/15/22 03/18/23 History amlodipine 5 mg tablet 10 mg PO DAILY #180 tabs 11/05/22 03/18/23 Rx levothyroxine 88 mcg tablet 88 mcg PO QAM #90 tabs 11/23/22 03/18/23 Rx losartan 100 mg tablet 100 mg PO QAM #90 tabs 11/23/22 03/18/23 Rx pantoprazole 40 mg tablet,delayed 40 mg PO QAM #90 tabs 11/23/22 03/18/23 Rx release simvastatin 10 mg tablet 10 mg PO HS #100 tabs 01/07/23 03/18/23 Rx carvedilol 6.25 mg tablet 6.25 mg PO Q12H #200 tabs 01/29/23 03/18/23 Rx cholecalciferol (vitamin D3) 50 50 mcg PO DAILY 02/27/23 03/18/23 History mcg (2,000 unit) tablet (Vitamin D3) Patient hx anesthesia problems: none Family hx anesthesia problems: none Results Review: All pre-operative results and documents have been reviewed as part of the pre-operative evaluation. [facility] Past Medical History Medical History Asthma Chronic GERD Claustrophobia Coughing GERD (gastroesophageal reflux disease) Heart attack History of postoperative complication of surgical procedure HTN (hypertension) Hyperlipidemia Hypothyroidism Left wrist fracture Positive colorectal cancer screening using Cologuard test Unspecified asthma, uncomplicated Surgical History Surgical History H/O left wrist surgery History of meniscectomy of left knee History of tonsillectomy and adenoidectomy Hx laparoscopic cholecystectomy [address] Brooks. Family History Family History Sibling Family history of elevated blood lipids Mother Patient's mother is Ovarian cancer Heart disease Father Patient's father is Other Arthritis Carcinoma of colon High cholesterol Social History Social History Smoking packs per day: 1 Smoking cigarettes per day: 20.0 Years smoked: 4 Smoking pack-years: 4.00 Smoking status: Former smoker Second hand tobacco smoke exposure: No Smoking end date: 02/17/80 Additional smoking assessment comments: quit 40 years ago Alcohol intake: current Alcohol use details: Rarely 1-2 times a year. Substance use: never Substance use type: does not use Lack of Transportation: No Lack of Food: Never True Current Housing: I Have Housing Concerned About Future Housing: No Difficulty Paying Gas/Electric Bills: No Difficulty Paying for Meds: No Education: Decline to Answer Difficulty w/
[2023-03-18] MEDS: LACTATED RINGERS 1,000 ML 150 ML IV CONT (08:04)
--- NOTE | 2023-03-18 08:47 | PM.HPGS ---
History of Present Illness History of Present Illness Consent: Risks, benefits, and alternatives have been discussed and questions answered. Patient agrees to proceed with procedure. Chief complaint: Neoplasm Screening Narrative: Pennie Lozano is a 77 year old female with colon polyps in 2020 Review of Systems Constitutional: Constitutional: Denies headache(s) and Denies weakness Eyes: Eyes: Denies blurry vision ENT: Reports Normal hearing present, Denies headache(s) and Denies neck pain Cardiovascular: Cardiovascular: Denies chest pain and Denies dyspnea Respiratory: Respiratory: Denies dyspnea Gastrointestinal: Gastrointestinal: Reports no additional gastrointestinal complaints Genitourinary: Genitourinary: Denies dysuria Musculoskeletal: Musculoskeletal: Denies neck pain Integumentary/Breasts: Skin/Breast: Denies dry skin Neurologic: Reports Normal hearing present, Denies headache(s) and Denies weakness Psychiatric: Psychiatric: Denies anxiety Endocrine: Endocrine: Denies change in body appearance Hematologic/Lymphatic: Hematologic/Lymphatic: Denies easy bleeding Allergic/Immunologic: Allergic/Immunologic: Denies urticaria PMFSH Past Medical History Medical History (Updated 03/18/23 @ 08:47 by Sea Suarez MD) Adenomatous colon polyp Asthma Chronic GERD Claustrophobia Coughing GERD (gastroesophageal reflux disease) Heart attack History of postoperative complication of surgical procedure HTN (hypertension) Hyperlipidemia Hypothyroidism Left wrist fracture Positive colorectal cancer screening using Cologuard test Unspecified asthma, uncomplicated Surgical History Surgical History H/O left wrist surgery History of meniscectomy of left knee History of tonsillectomy and adenoidectomy Hx laparoscopic cholecystectomy [address] Brooks. Family History Family History Sibling Family history of elevated blood lipids Mother Patient's mother is Ovarian cancer Heart disease Father Patient's father is Other Arthritis Carcinoma of colon High cholesterol Social History Social History Smoking packs per day: 1 Smoking cigarettes per day: 20.0 Years smoked: 4 Smoking pack-years: 4.00 Smoking status: Former smoker Second hand tobacco smoke exposure: No Smoking end date: 02/17/80 Additional smoking assessment comments: quit 40 years ago Alcohol intake: current Alcohol use details: Rarely 1-2 times a year. 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 Gender identity (if verbalized by the patient): Female Spiritual care concerns: No Meds Home Medications and Allergies Home Medications Medication Instructions Recorded Confirmed Type emollient combination no.40 1 each topical PRN PRN Dry Skin 08/24/19 03/18/23 History (Cetaphil DailyAdvance lotion) triamcinolone acetonide 0.1 % 1 applic topical BID PRN Dry Skin 03/29/20 03/18/23 History lotion aspirin 81 mg chewable tablet 81 mg PO DAILY 03/15/22 03/18/23 History leflunomide 20 mg tablet 20 mg PO DAILY 03/15/22 03/18/23 History amlodipine 5 mg tablet 10 mg PO DAILY #180 tabs 11/05/22 03/18/23 Rx levothyroxine 88 mcg tablet 88 mcg PO QAM #90 tabs 11/23/22 03/18/23 Rx losartan 100 mg tablet 100 mg PO QAM #90 tabs 11/23/22 03/18/23 Rx pantoprazole 40 mg tablet,delayed 40 mg
[2023-03-18 09:04] VITALS: BP 107/55; PULSE 62; RESP 16; O2SAT 96
[2023-03-18 09:14] VITALS: BP 115/66; PULSE 70; RESP 18; O2SAT 98
[2023-03-18 09:24] VITALS: BP 132/68; PULSE 66; RESP 18; O2SAT 98
--- NOTE | 2023-03-18 10:25 | WPDANESPN ---
Anes - Prog Note Post-Op Date/Time: 03/18/23 10:25 Cardiovascular status: normal Respiratory status: normal Airway patency: baseline Mental status: baseline Post-Op hydration status: normal Vital Signs: Last Vital Signs Temp 37.1 C 03/18/23 07:53 Pulse 66 03/18/23 09:24 Resp 18 03/18/23 09:24 BP 132/68 03/18/23 09:24 Pulse Ox 98 03/18/23 09:24 O2 Del Method Room Air 03/18/23 09:24 Pain Score (VAS): 0/10 I/O: Intake & Output 03/17/23 03/18/23 03/18/23 23:59 07:59 15:59 Intake Total 500 Balance 500 Patient Feedback: Patient satisfied with anesthetic care.
== END 2023-03-18 09:44 | disposition home or self-care (01) ==
PROVIDERS: PCP Internal Medicine; Visit Provider Internal Medicine Gastroenterology
PROC: 0DJD8ZZ Inspection of Lower Intestinal Tract, Via Natural or Artificial Opening Endoscopic (ICD-10-PCS; CPT 45378; principal; 2023-03-18 09:00)
DX: Z86.010 Personal history of colon polyps (principal); D12.4 Benign neoplasm of descending colon; K64.8 Other hemorrhoids
CPT/HCPCS: 45385

== ENCOUNTER 2023-03-18 09:00 | Outpatient (NON) | payer MEDICARE, SELFPAY | END 2023-03-18 09:01 | disposition home or self-care (01) | LOC: ANHLAB 03-19 08:02 | PROVIDERS: PCP Internal Medicine; Visit Provider Internal Medicine Gastroenterology | DX: R19.5 Other fecal abnormalities (principal) | CPT/HCPCS: 88305 ==

== ENCOUNTER 2024-01-22 08:04 | Outpatient (CLI) | payer MEDICARE, SELFPAY ==
--- NOTE | ~2024-01-22 | MM_ITS ---
EXAMINATION: MM screening [facility] BI w sharon HISTORY: Screening TECHNIQUE: Craniocaudal and mediolateral oblique 3-D tomosynthesis images were obtained and synthetic 2-D images were generated. CAD analysis was submitted and interpreted. COMPARISON: Comparison to multiple prior studies sequentially, with oldest reviewed study dated 06/19. BREAST PARENCHYMAL COMPOSITION: Not dense: There are scattered areas of fibroglandular density. FINDINGS: There is no evidence of suspicious mass, calcification, or architectural distortion to sugg est malignancy in either breast. There has been no suspicious interval change. IMPRESSION: 1. No mammographic evidence of malignancy. 2. Recommend routine screening mammography in one year. BI-RADS Category 1: Negative Reviewed, dictated and finalized at location B.
== END 2024-01-22 08:05 | disposition home or self-care (01) ==
LOC: ANHIMG 08:08
PROVIDERS: PCP Internal Medicine; Visit Provider Internal Medicine
DX: Z12.31 Encounter for screening mammogram for malignant neoplasm of breast (principal)
CPT/HCPCS: 77063; 77067

== ENCOUNTER 2025-01-21 10:19 | Emergency (ER) | payer MEDICARE, SELFPAY ==
--- NOTE | 2025-01-21 10:32 | ED_ITS ---
HPI - Skin/Abscess/Foreign Bdy General Chief complaint: Skin/Abscess/Foreign Body Stated complaint: rash Time Seen by Provider: 01/21/25 10:38 Source: patient, RN notes reviewed and old records reviewed Mode of arrival: ambulatory Limitations: no limitations History of Present Illness HPI narrative: 79-year-old female presents to the [facility] with 4-5 day history of a rash to the left posterior neck. Does not cross midline Rash is linear, scabbed over, no cellulitic changes. Treatments prior to arrival: other (cream) Related Data Home Medications ?Medication ?Instructions ?Recorded ?Confirmed ?Last Taken ?Type aspirin 81 mg chewable tablet 81 mg PO DAILY 03/15/22 12/30/24 03/17/23 History leflunomide 20 mg tablet 20 mg PO DAILY 03/15/22 12/30/24 03/17/23 History cholecalciferol (vitamin D3) 50 50 mcg PO DAILY 02/27/23 12/30/24 03/15/23 History mcg (2,000 unit) tablet (Vitamin D3) Allergies Allergy/AdvReac Type Severity Reaction Status Date / Time nitrofurantoin (From Allergy Severe Rash Verified 01/21/25 10:37 Macrobid) bacitracin Allergy Mild Blister Verified 01/21/25 10:37 gramicidin D Allergy Mild skin Verified 01/21/25 10:37 reaction neomycin Allergy Mild Blister Verified 01/21/25 10:37 polymyxin B Allergy Mild Blister Verified 01/21/25 10:37 erythromycin base AdvReac Mild GI upset Verified 01/21/25 10:37 Review of Systems 2 Review of Systems: All systems reviewed & are unremarkable except as noted in HPI and below Constitutional: Constitutional: Reports no additional constitutional complaints Musculoskeletal: Musculoskeletal: Reports no additional musculoskeletal complaints Integumentary/Breasts: Skin/Breast: Reports as per HPI Neurologic: Reports system reviewed and no additional complaints, except as documented, Denies vertigo, Denies dizziness, Denies numbness and Denies seizure-like activity PMFSH Past Medical History Medical History URI, acute Pure hypercholesterolemia Other fatigue Hypercholesterolemia Hoarseness Gastro-esophageal reflux disease without esophagitis Essential (primary) hypertension Encounter for screening for malignant neoplasm of colon Dietary counseling and surveillance (01/11/16) Allergic contact dermatitis due to plant Abnormal EKG Adenomatous colon polyp Left wrist fracture GERD (gastroesophageal reflux disease) Heart attack Coughing Claustrophobia History of postoperative complication of surgical procedure Hypothyroidism Chronic GERD HTN (hypertension) Positive colorectal cancer screening using Cologuard test Asthma Hyperlipidemia Unspecified asthma, uncomplicated Surgical History Surgical History Hx laparoscopic cholecystectomy [address] Brooks. H/O left wrist surgery History of meniscectomy of left knee History of tonsillectomy and adenoidectomy Family History Family History Sibling Family history of elevated blood lipids Mother Patient's mother is Ovarian cancer Heart disease Father Patient's father is Other Arthritis Carcinoma of colon High cholesterol Social History Social History Smoking packs per day: 1 Smoking cigarettes per day: 20.0 Years smoked: 4 Smoking pack-years: 4.00 Smoking status: Former smoker Second hand tobacco smoke exposure: No Smoking end date: 02/17/80 Additional smoking assessment comments: quit 40 years ago Alcohol intake: current Alcohol use details: Rarely 1-2 times a year. 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 There is no relevant family history pertinent to the patient complaint. Exam 2 Const: General: cooperative, healthy appearing, comfortable, no acute distress, well developed, alert and well nourished Nutritional Appearance: w ell nourished Orientation/consciousness: patient oriented x3 Limitations: no limitations HENMT: Head: normal to inspection Ears: hearing grossly normal bilaterally, external ears normal, TM's normal bilaterally, EAC's normal, mastoids normal and no periauricular adenopathy Face/Nose/Sinus: Normal external nose present, Normal nares present and No nasal discharge present Mouth: Yes Normal oral and palatal mucosa present, Yes lip normal, Yes tongue normal and Yes moist mucous membranes Throat: posterior oropharynx normal, uvula midline and no uvular edema Eyes: General: appearance normal, both eyes and all related structures A lignment and Position: alignment normal Neck: Neck: normal visual inspection, full ROM, no lymphadenopathy and no meningeal signs Chest: Chest palpation & inspection: normal inspection of the chest Resp: Effort & Inspection: normal respiratory effort and able to speak in complete sentences Auscultation: clear to auscultation bilaterally, no crackles, no rales, no rhonchi and no wheezes Cardio: Rate: regular rate Skin: General skin exam: normal color and no rashes or lesions noted R ashes: rashes noted Full body images: 1. Linear scabbed over rash patient reports is itchy. No cellulitic changes. No vesicular areas. Neuro: General: patient oriented x3, gait normal, moves all extremities and no meningeal signs Cognition (Neuro): normal cognition Speech: normal speech Gait exam (Neuro): Normal gait present Extrem: General: normal to inspection, full ROM, capillary refill normal and normal gait Psych: Appearance: grossly normal and well kempt Mental Status: mental status grossly normal Speech and movement: Normal speech and movement present and Clear speech present Affect: normal affect Attitude: cooperative Course Course Level of Care: Express Care Visit Vital Signs Vital signs: Vital Signs Temperature 97.1 F L 01/21/25 10:38 Pulse Rate 78 01/21/25 10:38 Respiratory Rate 16 01/21/25 10:38 Blood Pressure 143/63 H 01/21/25 10:38 Pulse Oximetry 98 01/21/25 10:38 Temperature 97.1 F L 01/21/25 10:38 Pulse Rate 78 01/21/25 10:38 Respiratory Rate 16 01/21/25 10:38 Blood Pressure 143/63 H 01/21/25 10:38 Pulse Oximetry 98 01/21/25 10:38 Reviewed MDM - Skin/Abscess/Foreign Bdy MDM Narrative Medical decision making narrative: Patient sitting in exam room. Patient is nontoxic, vitals are stable. Patient presents with 4-5 day history of a rash. To the left posterior neck. Possible shingles, out of window for treatment Patient appropriate for outpatient treatment and follow-up Discharge instructions reviewed with patient, as well as provided in writing per nursing staff. The instructions also include specific and strict return/GO TO THE ER as well as f/u information. All questions have been answered, and the patient deny any further questions with discharge and discharge plan. Some parts of this dictation were generated by voice recognition software and may contain typographical and/or grammatical inaccuracies. Differential Diagnosis Differential diagnosis: Likely abscess of skin or subcutaneous tissue, viral exanthem, urticaria, herpes zoster, cellulitis, eczema, insect bites, impetigo and contact dermatitis Critical Care Time Critical Care Time Critical Care Time: No Discharge Plan Discharge Clinical Impression: Rash Patient Disposition: Home Condition: Stable Instructions: Urticaria (ED) Additional Instructions: Take Zyrtec every day Take Pepcid 20mg daily for 7 days Apply triamcinolone twice a day. Avoid hot showers, Take cool showers. Hot showers will make rashes worse Apply cool compresses every 2-3 hours for 15 minutes Go to the ER for new or worsening symptoms such as shortness of breath. Patient Language: Swedish Prescriptions: No Action leflunomide 20 mg tablet 20 mg PO DAILY aspirin 81 mg Tablet,Chewable 81 mg PO DAILY amlodipine 5 mg tablet 10 mg PO DAILY Qty: 180 0RF carvedilol 6.25 mg tablet See Rx Instructions .ROUTE .COMPLEX Qty: 200 3RF Dose Instruction: TAKE 1 TABLET BY MOUTH EVERY 12 HOURS WITH MEALS / FOOD Rx Instructions: TAKE 1 TABLET BY MOUTH EVERY 12 HOURS WITH MEALS / FOOD levothyroxine 88 mcg tablet 88 mcg PO QAM Qty: 100 2RF simvastatin 10 mg tablet See Rx Instructions .ROUTE .COMPLEX Qty: 100 3RF Dose Instruction: TAKE 1 TABLET BY MOUTH AT BEDTIME Rx Instructions: TAKE 1 TABLET BY MOUTH AT BEDTIME pantoprazole 40 mg tablet,delayed release (DR/EC) 40 mg PO QAM Qty: 100 1RF losartan 100 mg tablet 100 mg PO QAM Qty: 100 1RF cholecalciferol (vitamin D3) [Vitamin D3] 50 mcg (2,000 unit) Tablet 50 mcg PO DAILY Follow-up/Referrals: Rohit Ward DO [Primary Care Provider] - 1 Week Time of Disposition: 10:55
[2025-01-21 10:38] VITALS: BP 143/63; PULSE 78; RESP 16; TEMP 36.2; O2SAT 98
== END 2025-01-21 10:59 | disposition home or self-care (01) ==
PROVIDERS: Emergency Provider Nurse Practitioner; PCP Internal Medicine
DX: R21 Rash and other nonspecific skin eruption (principal); Z87.891 Personal history of nicotine dependence; I10 Essential (primary) hypertension; E78.00 Pure hypercholesterolemia, unspecified; K21.9 Gastro-esophageal reflux disease without esophagitis; I25.2 Old myocardial infarction; E03.9 Hypothyroidism, unspecified; J45.909 Unspecified asthma, uncomplicated
CPT/HCPCS: 99213; G0463

== ENCOUNTER 2025-02-11 08:51 | Outpatient (CLI) | payer MEDICARE, SELFPAY ==
--- NOTE | ~2025-02-11 | MM_ITS ---
EXAMINATION: MM screening [facility] w sharon HISTORY: Screening mammogram TECHNIQUE: Craniocaudal and mediolateral oblique 3-D tomosynthesis images were obtained and synthetic 2-D images were generated. CAD analysis was submitted and interpreted. COMPARISON: 01/22/2024, 11/14/2022, 09/27/2021 BREAST PARENCHYMAL COMPOSITION:Not Dense. There are scattered areas of fibroglandular density. FINDINGS: No suspicious mass, calcification, or architectural distortion are identified in either raymundo ast to suggest malignancy. There has been no suspicious interval change. IMPRESSION: No mammographic evidence of malignancy. Recommend routine screening mammography in one year. BI-RADS Category 1: Negative Reviewed, dictated and finalized at location .
== END 2025-02-11 08:52 | disposition home or self-care (01) ==
LOC: ANHIMG 08:53
PROVIDERS: PCP Internal Medicine; Visit Provider Internal Medicine
DX: Z12.31 Encounter for screening mammogram for malignant neoplasm of breast (principal)
CPT/HCPCS: 77063; 77067

== ENCOUNTER 2025-03-30 09:34 | Outpatient (CLI) | payer MEDICARE, SELFPAY ==
--- NOTE | ~2025-03-30 | XR_ITS ---
XR shoulder RT min 2V 03/30/2025 09:50 INDICATION: Right shoulder pain PROCEDURE: 3 views right shoulder COMPARISON: No prior studies for comparison. FINDINGS: Fracture, dislocation or subluxation is not identified. The soft tissues appear within norm al limits. No foreign bodies are identified. IMPRESSION: 1: NO ACUTE BONE OR JOINT ABNORMALITY IDENTIFIED. Reviewed, dictated and finalized at location A.
--- OUTSIDE RECORDS SUMMARY | 2025-03-30 10:15 | XMS_ITS | Clinical Summary ---
Author Organization [facility] [address] Address [address] [place] [address] Care Team Providers Care Wire Stretcher Name Role Phone Rohit Ward DO Primary Care Provider [phone] Allergies Active Allergy Reactions Criticality Noted Date Comments Bacitracin Erythromycin Other (See comments) Low GI upset Gramicidins Rash Medium 09/25/2022 Neomycin Nitrofurantoin Rash Medium 09/25/2022 Polymyxin B Blisters High Medications aspirin 81 mg enteric coated tablet Take 1 tablet (81 mg total) by mouth daily Active leflunomide (ARAVA) 20 mg tablet Take 1 tablet (20 mg total) by mouth daily Active levothyroxine (SYNTHROID) 88 mcg tablet Take 1 tablet (88 mcg total) by mouth apprenticeship training representative before breakfast Active losartan (COZAAR) 100 mg tablet Take 1 tablet (100 mg total) by mouth daily Active pantoprazole DR (PROTONIX) 40 mg EC tablet Take 1 tablet (40 mg total) by mouth daily Active simvastatin (ZOCOR) 10 mg tablet Take 1 tablet (10 mg total) by mouth nightly Active carvediloL (COREG) 6.25 mg tablet Take 1 tablet (6.25 mg total) by mouth 2 (two) times a day with meals Active cholecalciferol (D3-5000) 5,000 unit capsule Take 1 capsule (5,000 Units total) by mouth every other day Active amLODIPine (NORVASC) 10 mg tablet Take 1 tablet (10 mg total) by mouth daily 100 tablet 2 5 Active Active Problems Problem Noted Date Diagnosed Date Chronic fatigue 04/05/2023 Nonrheumatic aortic valve stenosis 09/25/2022 Primary hypertension 09/25/2022 Mixed hyperlipidemia 09/25/2022 RBBB 09/25/2022 PSVT (paroxysmal supraventricular tachycardia) 0 09/25/2022 Drug indicated 06/23/2013 Overview (11/23/2016): High risk medication use Rheumatoid arthritis 06/23/2013 Overview (11/23/2016): Rheumatoid Arthritis Surgical History Surgery Date Site/Laterality Comments KNEE ARTHROSCOPY Arthroscopy knee CHOLECYSTECTOMY Cholecystectomy TONSILLECTOMY Tonsillectomy ADENOIDECTOMY FRACTURE SURGERY 07/19/2020 - 08/18/2020 Left Left wrist Medical History Medical History Date Comments Hyperlipidemia Hyperlipidemia Hx Other Medical hypothyroidsim Hypertension Hypertension Asthma Asthma GERD (gastroesophageal reflux disease) Nonrheumatic aortic (valve) stenosis RA (rheumatoid arthritis) Family History Medical History Relation Name Comments Heart attack Father Heart disease Mother Ovarian cancer Mother Ovarian cancer Other 1 Family histor y of Cancer, ovarian; Hypertension Other 2 Family history of Hypertension; Relation Name Status Comments Father Mother Other 1 Other 2 Social History Tobacco Use Types Packs/Day Years Used Date Smoking Tobacco: Former Cigarettes Q uit: 1985 Tobacco Cessation:Counseling Given: Not Answered Comments Unknown Sex and Gender Information Value Date Recorded Sex Assigned at Not on file Legal Sex Female 8:06 PM SAW STRAIGHTENER Gender Identity Not on file Sexual Orientation Not on file Obstetrics History Last Filed Vital Signs Vital Sign Reading Time Taken Comments Blood Pressure 130/60 10/12/2024 8:31 AM SAW STRAIGHTENER Pulse 85 10/12/2024 8:31 AM SAW STRAIGHTENER Temperature 36.3 C (97.3 F) 03/15/2020 10:21 AM CDT Respiratory Rate - - Oxygen Saturation 95% 10/12/2024 8:31 AM SAW STRAIGHTENER Inhaled Oxygen Concentration - - Weight 76.2 kg (168 lb) 10/12/2024 8:31 AM SAW STRAIGHTENER Height 167.6 cm (5' 6) 10/12/2024 8:31 AM SAW STRAIGHTENER Body Mass Index 27.12 10/12/2024 8:31 AM SAW STRAIGHTENER Plan of Treatment Health Maintenance Due Date Last Done Comments Depression Screening 1944 Fall Risk Assessment 1944 Osteoporosis Screening-Bone Density Scan 1944 Hepatitis B Screening 1962 Well Visit 65+ 2009 Zoster Vaccine (2 of 3) 10/25/2012 08/30/2012 Pneumococcal vaccine 65+ (2 of 2 - PCV20 or PCV21) 05/06/2020 05/06/2019 DTaP/Tdap/Td Vaccine (2 - Td or Tdap) 08/30/202207/2013 Influenza Vaccine (#1) 2025 9, 05/14/2018, 05/02/2017 Insurance [employer] CHOICE MEDICARE PPO Care Teams Wire Stretcher Relationship Specialty Start Date End Date Rohit Ward DO [address] [place] [address] PCP - General Internal Medicine 10/12/24
--- OUTSIDE RECORDS SUMMARY | 2025-03-30 10:15 | XMS_ITS | Clinical Summary ---
Author Organization [facility] Address [address] [facility] [facility] Attn: Epic Prelude ADT FRANCISCAHUANG ASHFORDMATEO [address] Care Team Providers Care Electrochemist Name Role Phone David See MD Primary Care Provider [phone] Social History Tobacco Use Types Packs/Day Years Used Date Smoking Tobacco: Never Assessed Comments Unknown Sex and Gender Information Value Date Recorded Sex Assigned at Not on file Legal Sex Female 4:32 AM DIRECTOR PATIENT FINANCIAL SERVICES Gender Identity Not on file Sexual Orientation Not on file Plan of Treatment Health Maintenance Due Date Last Done Comments DTAP/TDAP/TD VACCINES (1 - Tdap) 12/26/1963 PNEUMOCOCCAL VACCINE 50+ YEARS (1 of 1 - PCV) 12/25/18 95 ZOSTER VACCINE (1 of 2) 1994 OSTEOPOROSIS SCREENING 2009 RSV VACCINE (60+ or ) (1 - 1-dose 75+ series) 12/26/2019 INFLUENZA VACCINE (#1) 2025 Care Teams Electrochemist Relationship Specialty Start Date End Date aDvid See MD [address] [facility] [address] [place] [address] PCP - General 05/10/00
--- OUTSIDE RECORDS SUMMARY | 2025-03-30 10:15 | XMS_ITS | Encounter Summary ---
Author Organization [facility] Address [address] [place] [address] Care Team Providers Care Geological Sample Tester Name Role Phone David See MD Primary Care Provider [phone] Encounter Details Date Type Department Care Team (Late st Contact Info) Description 11/01/2000 Outpatient Historical HIS [facility] David Espinosa MD [address] [place] [address] Pain in joint, forearm (Primary Dx) Social History Tobacco Use Types Packs/Day Years Used Date Smoking Tobacco: Never Assessed Comments Unknown Sex and Gender Information Value Date Recorded Sex Assigned at Not on file Legal Sex Female 4:32 AM MUSEUM SPECIALIST Gender Identity Not on file Sexual Orientation Not on file documented as of this encounter Plan of Treatment Not on file documented as of this encounter Visit Diagnoses Diagnosis Pain in joint, forearm- Primary documented in this encounter Care Teams Geological Sample Tester Relationship Specialty Start Date End Date David See MD [address] [place] [address] PCP - General 05/10/00 documented as of this encounter
--- OUTSIDE RECORDS SUMMARY | 2025-03-30 10:15 | XMS_ITS | Encounter Summary ---
Author Organization [facility] Address [address] [place] [address] Care Team Providers Care Per Diem Physical Therapist Assistant Name Role Phone David See MD Primary Care Provider [phone] Encounter Details Date Type Department Care Team (Late st Contact Info) Description 05/30/2001 Outpatient Historical HIS MRI DEPT David See MD [address] [place] [address] Social History Tobacco Use Types Packs/Day Years Used Date Smoking Tobacco: Never Assessed Comments Unknown Sex and Gender Information Value Date Recorded Sex Assigned at Not on file Legal Sex Female 4:32 AM STAFF PSYCHOLOGIST Gender Identity Not on file Sexual Orientation Not on file documented as of this encounter Plan of Treatment Not on file documented as of this encounter Visit Diagnoses Not on filedocumented in this encounter Care Teams Per Diem Physical Therapist Assistant Relationship Specialty Start Date End Date David See MD [address] [place] [address] PCP - General 05/10/00 documented as of this encounter
--- OUTSIDE RECORDS SUMMARY | 2025-03-30 10:15 | XMS_ITS | Encounter Summary ---
Author Organization [facility] Address [address] [place] [address] Care Team Providers Care Airport Utility Worker Name Role Phone David See MD Primary Care Provider [phone] Encounter Details Date Type Department Care Team (Late st Contact Info) Description 06/12/2001 Outpatient Historical HIS MRI DEPT David See MD [email or web address] [place] [address] Lumbago (Primary Dx) Social History Tobacco Use Types Packs/Day Years Used Date Smoking Tobacco: Never Assessed Comments Unknown Sex and Gender Information Value Date Recorded Sex Assigned at Not on file Legal Sex Female 4:32 AM ELECTRICAL TESTER Gender Identity Not on file Sexual Orientation Not on file documented as of this encounter Plan of Treatment Not on file documented as of this encounter Visit Diagnoses Diagnosis Lumbago- Primary documented in this encounter Care Teams Airport Utility Worker Relationship Specialty Start Date End Date David See MD [address] [place] [address] PCP - General 05/10/00 documented as of this encounter
--- OUTSIDE RECORDS SUMMARY | 2025-03-30 10:15 | XMS_ITS | Encounter Summary ---
Author Organization [facility] Address [address] [place] [address] Care Team Providers Care Nuclear Reactor Operator Name Role Phone David See MD Primary Care Provider [phone] Encounter Details Date Type Department Care Team (Latest Contact Info) Description 03/14/2000 Outpatient Historical HIS LAB,NON-PATIENT Nikolas Harrison MD [address] [facility] [address] [place] [address] Gynecological examination (Primary Dx) Social History Tobacco Use Types Packs/Day Years Used Date Smoking Tobacco: Never Assessed Comments Unknown Sex and Gender Information Value Date Recorded Sex Assigned at Not on file Legal Sex Female 4:32 AM BARKER OPERATOR Gender Identity Not on file Sexual Orientation Not on file documented as of this encounter Plan of Treatment Not on file documented as of this encounter Visit Diagnoses Diagnosis Gynecological examination- Primary documented in this encounter Care Teams Nuclear Reactor Operator Relationship Specialty Start Date End Date David See MD [address] [facility] [address] [place] [address] PCP - General 05/10/00 documented as of this encounter
--- OUTSIDE RECORDS SUMMARY | 2025-03-30 10:15 | XMS_ITS | Encounter Summary ---
Author Organization [facility] Address [address] [place] [address] Care Team Providers Care Customer Complaint Clerk Name Role Phone David See MD Primary Care Provider [phone] Encounter Details Date Type Department Care Team (Latest Contact Info) Description 04/11/2001 Outpatient Historical HIS [facility] IMANI Harrison, Nikolas Noyola MD [address] [facility] [address] [place] [address] Gynecological examination (Primary Dx) Social History Tobacco Use Types Packs/Day Years Used Date Smoking Tobacco: Never Assessed Comments Unknown Sex and Gender Information Value Date Recorded Sex Assigned at Not on file Legal Sex Female 4:32 AM CSM CONSULTANT Gender Identity Not on file Sexual Orientation Not on file documented as of this encounter Plan of Treatment Not on file documented as of this encounter Visit Diagnoses Diagnosis Gynecological examination- Primary documented in this encounter Care Teams Customer Complaint Clerk Relationship Specialty Start Date End Date David See MD [address] [facility] [address] [place] [address] PCP - General 05/10/00 documented as of this encounter
--- OUTSIDE RECORDS SUMMARY | 2025-03-30 10:15 | XMS_ITS | Encounter Summary ---
Author Organization [facility] Address [address] [place] [address] Care Team Providers Care Nematology Teacher Name Role Phone David See MD Primary Care Provider [phone] Encounter Details Date Type Department Care Team (Latest Contact Info) Description 05/20/2001 Outpatient Historical [facility] Elzbieta Veloz MD [address] [facility] [address] [place] [address] Lumbago (Primary Dx) Social History Tobacco Use Types Packs/Day Years Used Date Smoking Tobacco: Never Assessed Comments Unknown Sex and Gender Information Value Date Recorded Sex Assigned at Not on file Legal Sex Female 4:32 AM LAMINATION ASSEMBLER Gender Identity Not on file Sexual Orientation Not on file documented as of this encounter Plan of Treatment Not on file documented as of this encounter Visit Diagnoses Diagnosis Lumbago- Primary documented in this encounter Care Teams Nematology Teacher Relationship Specialty Start Date End Date David See MD [address] [facility] [address] [place] [address] PCP - General 05/10/00 documented as of this encounter
--- OUTSIDE RECORDS SUMMARY | 2025-03-30 10:15 | XMS_ITS | Encounter Summary ---
Author Organization [facility] Address [address] [place] [address] Care Team Providers Care Cutter Grind Tool Technician Name Role Phone David See MD Primary Care Provider [phone] Encounter Details Date Type Department Care Team (Late st Contact Info) Description 10/25/1998 Outpatient Historical [facility] PRIMARY [facility] David See MD [address] [place] [address] Social History Tobacco Use Types Packs/Day Years Used Date Smoking Tobacco: Never Assessed Comments Unknown Sex and Gender Information Value Date Recorded Sex Assigned at Not on file Legal Sex Female 4:32 AM SECURITY SALES MANAGER Gender Identity Not on file Sexual Orientation Not on file documented as of this encounter Plan of Treatment Not on file documented as of this encounter Visit Diagnoses Not on filedocumented in this encounter Care Teams Cutter Grind Tool Technician Relationship Specialty Start Date End Date David See MD [address] [facility] [place] [address] PCP - General 05/10/00 documented as of this encounter
--- OUTSIDE RECORDS SUMMARY | 2025-03-30 10:15 | XMS_ITS | Encounter Summary ---
Author Organization [facility] Address [address] [place] [address] Care Team Providers Care Car Sales Representative Name Role Phone David See MD Primary Care Provider [phone] Encounter Details Date Type Department Care Team (Late st Contact Info) Description 08/15/1999 Outpatient Historical [facility] David See MD [address] [place] [address] Social History Tobacco Use Types Packs/Day Years Used Date Smoking Tobacco: Never Assessed Comments Unknown Sex and Gender Information Value Date Recorded Sex Assigned at Not on file Legal Sex Female 4:32 AM RADIOGRAPHER CARDIAC CATHETERIZATION Gender Identity Not on file Sexual Orientation Not on file documented as of this encounter Plan of Treatment Not on file documented as of this encounter Visit Diagnoses Not on filedocumented in this encounter Care Teams Car Sales Representative Relationship Specialty Start Date End Date David See MD [address] [facility] [place] [address] PCP - General 05/10/00 documented as of this encounter
--- OUTSIDE RECORDS SUMMARY | 2025-03-30 10:15 | XMS_ITS | Encounter Summary ---
Author Organization [facility] Address 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
--- OUTSIDE RECORDS SUMMARY | 2025-03-30 10:15 | XMS_ITS | Encounter Summary ---
Author Organization [facility] Address 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) Social History Tobacco Use Types Packs/Day Years Used Date Smoking Tobacco: Never Assessed Comments Unknown Sex and Gender Information Value Date Recorded Sex Assigned at Not on file 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
--- OUTSIDE RECORDS SUMMARY | 2025-03-30 10:15 | XMS_ITS | Encounter Summary ---
Author Organization [facility] Address [address] [place] [address] Care Team Providers Care Housekeeping Laundry Worker Name Role Phone David See MD Primary Care Provider [phone] Encounter Details Date Type Department Care Team (Latest Contact Info) Description 05/10/2000 Outpatient Historical [facility] Nikolas Harrison MD [address] [place] [address] Mucous polyp of cervix (Primary Dx) Social History Tobacco Use Types Packs/Day Years Used Date Smoking Tobacco: Never Assessed Comments Unknown Sex and Gender Information Value Date Recorded Sex Assigned at Not on file Legal Sex Female 4:[address] Gender Identity Not on file Sexual Orientation Not on file documented as of this encounter Plan of Treatment Not on file documented as of this encounter Visit Diagnoses Diagnosis Mucous polyp of cervix- Primary documented in this encounter Care Teams Housekeeping Laundry Worker Relationship Specialty Start Date End Date David See MD [address] [facility] [address] [place] [address] PCP - General 05/10/00 documented as of this encounter
--- OUTSIDE RECORDS SUMMARY | 2025-03-30 10:15 | XMS_ITS | Encounter Summary ---
Author Organization [facility] Address 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
--- OUTSIDE RECORDS SUMMARY | 2025-03-30 10:15 | XMS_ITS | Encounter Summary ---
Author Organization [facility] Address [address] [place] [address] Care Team Providers Care Stamp Pad Maker Name Role Phone David See MD Primary Care Provider [phone] Encounter Details Date Type Department Care Team (Late st Contact Info) Description 05/13/[address] 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
== END 2025-03-30 09:35 | disposition home or self-care (01) ==
PROVIDERS: PCP Internal Medicine; Visit Provider Orthopaedic Surgery
DX: M25.511 Pain in right shoulder (principal)
CPT/HCPCS: 73030